=== PATIENT | female | born 1995 | race Caucasian/White ===

== ENCOUNTER 2022-06-11 19:03 | Inpatient (IN) ==
[~2022-06-11 19:03] MED LIST: *HR* Nalbuphine 10 MG/ML AMPUL IV ONE; Famotidine 20 MG/2 ML VIAL IVP PRN; Lidocaine 1% 20 ML MDV INFILT PRN; Metoclopramide 10 MG/2 ML VIAL IVP PRN; Naloxone 0.4 MG/ML INJ IVP PRN; Ringers Solution, Lactated 1,000 ML IVC ONE
[2022-06-11] MEDS ORDERED: EPHEDrine 50 MG/ML VIAL IVP PRN (21:03)
[2022-06-11 21:38] LABS: Basophils # 0.1 K/mcL (0.0-0.2); Basophils % 0.4 %; Eosinophils % 0.3 %; Hematocrit 40.7 % (35.3-44.9); Immature Granulocytes % 0.3 % (0-4); Lymphocytes # 2.6 K/mcL (0.6-4.6); Lymphocytes % 20.3 %; Mean Corpuscular HGB Conc 34.4 g/dL (31.6-35.5); Mean Corpuscular Hemoglobin 32.7 pg (28.0-33.3); Mean Corpuscular Volume 95.1 fL (83.0-100.0); Monocytes # 0.8 K/mcL (0.0-1.3); Monocytes % 6.2 %; Neutrophils # 9.2 K/mcL (1.6-8.9); Platelet Count 171 K/mcL (140-400); Red Blood Count 4.28 M/mcL (3.82-4.97); Red Cell Distribution Width 12.6 % (11.5-14.5); Segmented Neutrophils % 72.5 %; White Blood Count 12.7 K/mcL (4.3-11.1)
[2022-06-11] MEDS ORDERED: *HR* Nalbuphine 10 MG/ML AMPUL IV PRN (21:51)
[2022-06-11] MEDS ORDERED: Ringers Solution, Lactated 1,000 ML ONE (22:04)
[2022-06-11] MEDS ORDERED: *HR* Nalbuphine 10 MG/ML AMPUL IV ONE (22:10)
[2022-06-11] MEDS ORDERED: Oxytocin 30 UNIT/503 ML BAG IVC SCH (22:50)
[2022-06-12] MEDS ORDERED: Morphine Sulfate 2 MG/ML SYRINGE SQ ONE (01:04)
[2022-06-12] MEDS ORDERED: Morphine Sulfate 2 MG/ML SYRINGE IVP ONE (01:06)
[2022-06-12] MEDS ORDERED: Ringers Solution, Lactated 1,000 ML ONE ×4 (01:58→05:40)
[2022-06-12] MEDS: Epidural Premix (fent/bupiv) 110 ML EP SCH ×2 (02:37→08:00)
[2022-06-12] MEDS ORDERED: Ondansetron ODT 4 MG TAB.RAPDIS SL PRN (09:48)
[2022-06-12] MEDS ORDERED: Lanolin 7 G OINT...G. TP PRN (09:48)
[2022-06-12] MEDS ORDERED: Oxytocin 30 UNIT/503 ML BAG IVC SCH (09:48)
[2022-06-12] MEDS ORDERED: Benzocaine/Menthol 56 GM AEROSOL SPRAY TP PRN (09:48)
[2022-06-12] MEDS: Acetaminophen 325 MG TABLET PO SCH ×3 (11:41→23:35)
[2022-06-12] MEDS: Ibuprofen 600 MG TABLET PO SCH ×3 (15:47→23:35)
[2022-06-13 05:30] VITALS: O2SAT 97
[2022-06-13 05:58] LABS: Basophils # 0.1 K/mcL (0.0-0.2); Basophils % 0.3 %; Eosinophils # 0.1 K/mcL (0.0-0.6); Eosinophils % 0.6 %; Hematocrit 31.4 % (35.3-44.9); Immature Granulocytes % 0.5 % (0-4); Lymphocytes # 3.2 K/mcL (0.6-4.6); Lymphocytes % 21.4 %; Mean Corpuscular HGB Conc 33.8 g/dL (31.6-35.5); Mean Corpuscular Hemoglobin 31.9 pg (28.0-33.3); Mean Corpuscular Volume 94.6 fL (83.0-100.0); Mean Platelet Volume 10.5 fL (9.4-12.4); Monocytes % 6.6 %; Neutrophils # 10.6 K/mcL (1.6-8.9); Platelet Count 143 K/mcL (140-400); Red Blood Count 3.32 M/mcL (3.82-4.97); Red Cell Distribution Width 12.7 % (11.5-14.5); Segmented Neutrophils % 70.6 %
[2022-06-13 06:00] LABS: Hemoglobin 10.6 g/dL (11.5-15.4)
[2022-06-13 08:32] VITALS: BP 118/66; PULSE 68; TEMP 97.7
[2022-06-13] MEDS ORDERED: Prenatal Vit/FA 1 EACH TABLET PO SCH (09:00)
[2022-06-13] MEDS: Acetaminophen 325 MG TABLET PO SCH (10:44)
[2022-06-13] MEDS: Ibuprofen 600 MG TABLET PO SCH (10:44)
== END 2022-06-13 13:10 | disposition home or self-care (01) | DRG 807 ==
LOC: 1NENULAB → 1NENUOBS 06-12 11:54 → 1NENUPED 06-12 18:38
PROVIDERS: ADMIT Obstetrics & Gynecology; ATTEND Obstetrics & Gynecology